=== PATIENT | female | born 1985 | race Hispanic/Latino ===

== ENCOUNTER 2018-05-20 22:45 | Emergency (ER) | payer SELFPAY ==
[2018-05-20] MEDS ORDERED: predniSONE 20 MG TAB ONE (23:11)
[2018-05-20] MEDS ORDERED: Famotidine 20 MG TAB ONE (23:11)
== END 2018-05-20 23:53 | disposition home or self-care (01) ==
LOC: ERS 22:45
DX: T78.40XA Allergy, unspecified, initial encounter (principal); H01.9 Unspecified inflammation of eyelid
CPT/HCPCS: 99283; J7506

== ENCOUNTER 2019-08-03 14:16 | Emergency (ER) | payer SELFPAY | END 2019-08-03 16:13 | LOC: ERS 14:16 | DX: Z53.21 Procedure and treatment not carried out due to patient leaving prior to being seen by health care provider (principal) | CPT/HCPCS: 87804 ==

== ENCOUNTER 2024-05-24 08:37 | Emergency (ER) | payer SELFPAY ==
[2024-05-24] MEDS ORDERED: Ketorolac Tromethamine 30 MG (1 mL) VIAL ONE (09:16)
[2024-05-24] MEDS ORDERED: Dexamethasone 10 MG/ML VIAL ONE (09:17)
== END 2024-05-24 09:47 | disposition home or self-care (01) ==
LOC: ERS 08:37
DX: J11.1 Influenza due to unidentified influenza virus with other respiratory manifestations (principal); H66.92 Otitis media, unspecified, left ear
CPT/HCPCS: 87081; 87428; 87430; 96372; 99283; J1100; J1885